=== PATIENT | male | born 1970 | race Caucasian/White ===

== ENCOUNTER 2020-05-11 17:25 | Emergency (ER) | payer MEDICAID, SELFPAY ==
[2020-05-11 17:29] VITALS: BP 160/86; PULSE 86; RESP 18; TEMP 36.6; O2SAT 98; BMI 30.9
--- NOTE | 2020-05-11 17:39 | CTR_ITS ---
PROCEDURE INFORMATION: Exam: CT Abdomen And Pelvis Without Contrast Exam date and time: 05/11/2020 5:40 PM Age: 49 years old Clinical indication: Abdominal pain; Flank; Left; Prior surgery; Surgery date: 6+ months; Surgery type: Appy back; Additional info: Left abd pain TECHNIQUE: Imaging protocol: Computed tomography of the abdomen and pelvis without contrast. Radiation optimization: All CT scans at this facility use at least one of these dose optimization techniques: automated exposure control; mA and/or kV adjustment per patient size (includes targeted exams where dose is matched to clinical indication); or iterative reconstruction. COMPARISON: No relevant prior studies available. RADIATION DOSE METRICS: Total DLP (mGy-cm): 1909.26 FINDINGS: Lungs: Mild atelectasis versus fibrosis noted at the lung bases. Mediastinal space: There is a small hiatal hernia present. Liver: Decreased hepatic density is noted, consistent with hepatic steatosis. There are 2 punctate hepatic calcifications, likely small healed granulomas. Gallbladder and bile ducts: Unremarkable. No calcified stones. No ductal dilation. Pancreas: The pancreas is normal in appearance. Spleen: The spleen is normal in size and appearance. Adrenal glands: The adrenal glands appear within normal limits. Kidneys and ureters: Nonobstructing 3 mm calculus noted in the left kidney. No right renal calculi. Mild left hydroureteronephrosis. There is a 2 mm proximal left ureteral calculus. Findings are consistent with left obstructive uropathy. No right hydronephrosis. Right ureter appears normal. Stomach and bowel: No acute gastric abnormality demonstrated. The small bowel is unremarkable as demonstrated. No acute abnormality/inflammatory change of the colon. Appendix: No evidence of appendicitis. Intraperitoneal space: No pneumoperitoneum. No significant fluid collection. Vasculature: The aorta is atherosclerotic. No aortic aneurysm. Lymph nodes: No pathologically enlarged lymph nodes are demonstrated. Urinary bladder: The urinary bladder is unremarkable in appearance. Reproductive: Mild enlargement of the prostate gland. Bones/joints: Degenerative and postop changes of the lumbar spine are noted. Soft tissues: Unremarkable. CT/CT kidney stone [id number] IMPRESSION: 1. Mild left hydroureteronephrosis. There is a 2 mm proximal left ureteral calculus. Findings are consistent with left obstructive uropathy. 2. Decreased hepatic density is noted, consistent with hepatic steatosis. Radiation Dose CTDIVOL = (mGy): DLP = 1909.26 (mGy-cm)
[2020-05-11 17:41] VITALS: BP 160/86; PULSE 91; RESP 17; O2SAT 99
--- NOTE | 2020-05-11 17:44 | ED_ITS ---
HPI - Male Genitourinary General: Chief complaint: Urogenital-Male Stated complaint: TESTICULAR ISSUE Time Seen by Provider: 05/11/20 17:29 History of Present Illness: HPI Narrative: Patient arrives via EMS with complaint of testicle and left abdomen pain. Said it started at 230. He was a patient on the waiting room earlier did not wait to be seen in the left. Did receive 100 mics of fentanyl in route from the ambulance. Said his testicles went up in his abdomen but said is more his abdomen is hurting. MD Complaint: other (Left lower quadrant abdominal pain) Onset (ago): hour(s) Duration: constant and progressively worsening Location: left testicle and abdomen Severity: moderate Severity scale (1-10): 7 Quality: aching, sharp and stabbing Exacerbating factors: movement Associated symptoms: Reports nausea Review of Systems Const: Denies: fever(s), chills or body aches Eyes: Denies: change in vision or blurry vision ENMT: Denies: throat pain or nasal congestion Card: Denies: chest pain or dyspnea on exertion Resp: Denies: dyspnea, productive cough or non-productive cough GI: Reports: abdominal pain and nausea : Reports: testicular pain; Denies: difficulty urinating Musc: Denies: extremity pain Skin/Breast: Denies: rash Neuro: Denies: headache(s) Psych: Denies: anxiety or depression Elroy/Lymph: Denies: easy bruising Physical Exam Const: COMMON NORMALS: no acute distress, average body habitus and patient oriented x3 HENMT: COMMON NORMALS: normocephalic HEAD & SCALP: normal to inspection and normocephalic FACE & SINUS: normal facial exam Eye: COMMON NORMALS: conjunctivae normal GENERAL EYE: appearance normal, both eyes and all related structures CONJUNCTIVA: Yes conjunctivae normal Neck/C-Spine: COMMON NORMALS: no JVD Chest: COMMONS NORMALS: normal inspection of the chest Resp: COMMON NORMALS: normal respiratory effort and clear to auscultation bilaterally AUSCULTATION: clear to auscultation bilaterally Cardio: COMMON NORMALS: no JVD, regular rate and regular rhythm RATE: regular rate RHYTHM: regular rhythm GI: INSPECTION: Yes normal to inspection AUSCULTATION: Yes normoactive bowel sounds PALPATION: Yes Tenderness to palpation present (GI) Details: LLQ : PENIS: normal penis SCROTUM: Yes testes descended bilaterally TESTES: Yes testicular lie normal and Yes high-riding testicle High-riding testicle laterality: left Extremity: COMMON NORMALS: normal to inspection and full ROM Neuro: COMMON NORMALS: patient oriented x3 Course Vital Signs: Vital signs: Vital Signs Temperature 97.9 F 05/11/20 17:29 Pulse Rate 91 05/11/20 17:41 Respiratory Rate 17 05/11/20 17:41 Blood Pressure 160/86 05/11/20 17:41 Pulse Oximetry 99 05/11/20 17:41 Discharge Plan Discharge Prescriptions: No Action No Known Home Medications RF: 0 Coding Level of Care Code ED Cash Register Operator for Nita Liu
[2020-05-11] MEDS: ketorolac 30 mg/mL INJ IVP (18:14)
[2020-05-11] MEDS: sodium chloride 0.9% 500 ML IV (18:14)
[2020-05-11 19:31] LABS: Add Urine Microscopic? YES; Bilirubin Urine Neg (Negative); Blood Urine 3+ (Negative); Glucose Urine UA Norm (Normal); Ketones Urine 1+ (Negative); Leukocyte Esterase Urine Negative (Negative); Nitrate Urine Negative (Negative); Protein Urine Neg (Negative); Urine Appearance Hazy (CLEAR); Urine Color Yellow (Yellow); Urobilinogen Urine Norm (Negative); pH Urine 5 (5-7)
[2020-05-11 19:34] LABS: Add Urine Culture? Yes; Bacteria Urine TRACE /hpf; RBC Urine 40-50 /hpf (0-2); Squamous Epithelial Cell Urine 0-4 /hpf (0-5)
[2020-05-11] MEDS: ondansetron 2 mg/ML SDV 2 mL 4 MG IVP (19:35)
[2020-05-11] MEDS: HYDROcodone-acetaminophen 7.5-325 mg Tablet 1 TAB PO (19:35)
[2020-05-11 19:36] VITALS: BP 140/75; PULSE 98; RESP 17; O2SAT 98
[2020-05-11 19:55] LABS: Basophils # 0.1 10^3/uL (0.0-0.1); Basophils % 0.4 %; Hematocrit 45.1 % (42.0-52.0); Lymphocytes # 0.9 10^3/uL (0.8-4.8); Lymphocytes % 4.4 %; Mean Corpuscular HGB Conc 33.3 g/dL (30.0-36.0); Mean Corpuscular Hemoglobin 30.1 pg (28.0-34.0); Mean Corpuscular Volume 90.6 fL (80-94); Mean Platelet Volume 9.3 fL (7.4-10.4); Monocytes # 0.9 10^3/uL (0.2-0.9); Monocytes % 4.6 %; Neutrophils # 17.75 10^3/uL (1.8-7.7); Nucleated Red Blood Cells % 0 %; Platelet Count 331 10^3/cmm (130-400); Red Blood Count 4.98 10^6/uL (4.1-5.3); Red Cell Distribution Width 13.8 % (12.1-15.1); White Blood Count 19.7 10^3/uL (4.0-10.0)
[2020-05-11] MEDS: tamsulosin 0.4 mg Capsule 0.8 MG PO (20:11)
[2020-05-11 20:17] LABS: Alanine Aminotransferase 28 U/L (0-41); Albumin Level 4.3 g/dL (3.5-5.2); Alkaline Phosphatase 90 IU/L (40-130); Anion Gap 14.4 (5-19); Aspartate Amino Transferase 19 U/L (0-40); Blood Urea Nitrogen 11 mg/dL (6-20); Calcium 9.8 mg/dL (8.5-10.5); Carbon Dioxide 25 mmol/L (22-29); Chloride 106 mmol/L (98-107); Globulin 2.9 g/dL (1.3-4.6); Glomerular Filtration Rate 63.8 mL/min (90-130); Glucose 104 mg/dL (65-115); Osmolality Calculated 292 mOsm/kg (285-295); Potassium 4.4 mmol/L (3.5-5.1); Sodium 141 mmol/L (136-145); Total Bilirubin 0.4 mg/dL (0.15-1.2); Total Protein 7.2 g/dL (6.6-8.7)
[2020-05-11 21:03] VITALS: BP 140/91; PULSE 91; RESP 18; O2SAT 97
== END 2020-05-11 21:05 | disposition home or self-care (01) ==
PROVIDERS: Emergency Provider Nurse Practitioner Family
DX: N50.812 Left testicular pain (principal)
CPT/HCPCS: 12345; 74176; 80053; 81001; 85025; 87086; 96361; 96374; 96375; 99283; J1885; J2405; J7040

== ENCOUNTER → 2020-06-07 14:31 | Outpatient (BNVA) | payer MEDICAID, SELFPAY | PROVIDERS: Visit Provider Family Medicine Adult Medicine | DX: I10 Essential (primary) hypertension (principal); N20.0 Calculus of kidney; R94.4 Abnormal results of kidney function studies; E66.9 Obesity, unspecified; M54.5 Low back pain; G89.29 Other chronic pain | CPT/HCPCS: 80053; 83036; 84443 ==

== ENCOUNTER 2020-08-14 10:51 | Emergency (ER) | payer MEDICAID, SELFPAY ==
[2020-08-14 10:58] VITALS: BP 171/115; PULSE 115; RESP 18; TEMP 37.1; O2SAT 98; BMI 28.7
--- NOTE | 2020-08-14 11:24 | CTR_ITS ---
PROCEDURE INFORMATION: Exam: CT Lumbar Spine Without Contrast Exam date and time: 08/14/2020 12:30 PM Age: 50 years old Clinical indication: Low back pain; Prior surgery; Surgery date: <1 month; Surgery type: Lumbar; Additional info: Recent spine surgery, severe leg pain TECHNIQUE: Imaging protocol: Computed tomography images of the lumbar spine without contrast. Radiation optimization: All CT scans at this facility use at least one of these dose optimization techniques: automated exposure control; mA and/or kV adjustment per patient size (includes targeted exams where dose is matched to clinical indication); or iterative reconstruction. COMPARISON: No relevant prior studies available. RADIATION DOSE METRICS: Total DLP (mGy-cm): 2558.18 FINDINGS: Vertebrae: The patient is status post L4-L5 anterior and L5-S1 posterior fusion. No evidence of hardware related complication. No spine curvature seen. The normal lumbar lordosis is maintained, with grade 1 retrolisthesis of L5. No fracture seen. The vertebral body heights are well maintained. Degenerative endplate changes at L5-S1 noted. L1-L2: No significant disc protrusion. No severe spinal canal stenosis. No significant neural foraminal narrowing. L2-L3: No significant disc protrusion. No spinal canal stenosis. No neural foraminal narrowing. L3-L4: There is mild circumferential disc bulging, in association with mild bilateral facet joint arthrosis. No severe spinal canal stenosis. No significant neural foraminal narrowing. L4-L5: There is moderate bilateral facet joint arthrosis. No significant neural foraminal narrowing. The spinal canal is obscured by extensive streak artifact. L5-S1: There is hypertrophy and sclerosis of the facet joints bilaterally. There is mild left and [id number] right neural foraminal narrowing. The spinal canal is obscured by extensive streak artifact. Vasculature: Mild diffuse atherosclerotic disease is present. Along the left anterior aspect of L5/level of the left common iliac vein, there is a mildly hyperdense structure with haziness of the surrounding fat, measuring approximately 4.3 x 2.2 x 3.7 cm. Soft tissues: Surgical skin clips are seen in the mid anterior pelvic wall. Multiple surgical clips and postoperative bubbles of air are noted in the prevertebral soft tissues. CT/CT lumbar spine wo con* [id number] IMPRESSION: 1. Status post L4-L5 anterior and L5-S1 posterior fusion. No evidence of hardware related complication. Limited visualization of the spinal canal at L4-L5-S1. 2. Degenerative changes of the lower lumbar spine, most prominent at L5-S1. 3. Mildly hyperdense structure with haziness of the adjacent fat in the prevertebral soft tissues at the level of L5/expected location of the left common iliac vein, which may represent a small postoperative hematoma, and enlarged thrombosed left common iliac vein, or a combination of both. Radiation Dose CTDIVOL = (mGy): DLP = 2558.18 (mGy-cm)
--- NOTE | 2020-08-14 11:24 | USR_ITS ---
PROCEDURE INFORMATION: Exam: US Duplex Lower Extremity Veins, Bilateral Exam date and time: 08/14/2020 11:34 AM Age: 50 years old Clinical indication: Pain; Leg, upper and leg, lower; Left; Right; Patient HX: Recent back surgery; Additional info: Bilateral leg pain, h/o dvt, recent surgery 9 days ago TECHNIQUE: Imaging protocol: Real-time duplex ultrasound of the extremities with 2-D márquez scale, color Doppler flow and spectral waveform analysis with image documentation. Complete exam focused on the bilateral lower extremity veins. COMPARISON: No relevant prior studies available. FINDINGS: Right deep veins: Unremarkable. The common femoral, femoral, proximal profunda femoral and popliteal veins are patent without thrombus. Normal Doppler waveforms. Normal compressibility and/or augmentation response. Right superficial veins: Saphenofemoral junction is patent without thrombus. Left deep veins: Unremarkable. The common femoral, femoral, proximal profunda femoral and popliteal veins are patent without thrombus. Normal Doppler waveforms. Normal compressibility and/or augmentation response. Left superficial veins: Saphenofemoral junction is patent without thrombus. Soft tissues: Unremarkable. US/[place] [id number] IMPRESSION: No evidence of deep vein thrombosis.
[2020-08-14] MEDS: HYDROmorphone 1 mg/mL INJ 1 mL IVP (11:41)
--- NOTE | 2020-08-14 11:49 | ED_ITS ---
HPI - Back Pain/Injury General: Chief Complaint: Back Pain/Injury Stated Complaint: BACK PAIN S/P SURGERY Time Seen by Provider: 08/14/20 10:59 Source: patient Mode of arrival: EMS Limitations: no limitations History of Present Illness: HPI Narrative: Patient is a 50-year-old male who had spinal surgery 9 days ago. He was discharged home 6 days ago and said for the first 2 days at home he felt fine. 2 days after he got home he developed severe bilateral lower extremity pain. He denies any back pain but only has pain in his lower extremities bilaterally. He is still able to walk using a walker as instructed by the surgeon. He denies any fever, but he says his legs feel warm. He had called the spinal surgeon who advised that he double the dose of his Percocet but he said it is not helping. The patient is crying throughout my interview and sometimes is difficult to obtain a complete history because he is crying so much. When I asked him he said he had a shoulder surgery a few years ago and shortly after the surgery he developed DVT in his upper extremity. Associated symptoms: Deny abdominal pain, chills, dysuria, fever(s), nausea, urinary urgency or vomiting Review of Systems General: Reports: 10 or more systems reviewed and unremarkable except in HPI and below Const: Denies: fever(s), chills or body aches Eyes: Denies: change in vision or blurry vision ENMT: Denies: throat pain, enlarged tonsils, odynophagia, hoarseness, mouth pain or swelling of lips/tongue Card: Denies: palpitations, irregular heart rhythm, edema or swelling of feet/ankles Resp: Denies: dyspnea, productive cough or non-productive cough GI: Denies: abdominal pain, nausea or vomiting : Denies: flank pain, dysuria, urinary frequency, urinary urgency or urinary hesitancy Musc: Denies: neck pain, back pain or extremity swelling Skin/Breast: Denies: rash, pruritus or erythema Neuro: Denies: headache(s), numbness in extremities or weakness in extremities Endo: Denies: polyuria, polydipsia or tired all the time PFSH ED PFSH: Medical History Chronic low back pain Decreased glomerular filtration rate (GFR) Elevated blood pressure reading Hypertension Kidney stones, calcium oxalate dihydrate Obesity (BMI 30.0-34.9) Social History Smoking and tobacco status: current every day smoker Physical Exam Const: COMMON NORMALS: no acute distress, average body habitus, patient oriented x3, no limitations, healthy appearing, alert and well nourished HENMT: COMMON NORMALS: normocephalic, atraumatic and moist oral mucous membranes HEAD & SCALP: normocephalic and atraumatic Neck/C-Spine: COMMON NORMALS: no meningeal signs and no JVD Resp: COMMON NORMALS: normal respiratory effort, No retractions, No use of accessory muscles, clear to auscultation bilaterally and percussion normal AUSCULTATION: clear to auscultation bilaterally PERCUSSION: percussion normal Cardio: COMMON NORMALS: no JVD, regular rate, regular rhythm, S1 normal heart sound present, S2 normal heart sound present, No gallops present (Cardio), No clicks present (Cardio), No murmurs present (Cardio), No rub (Cardio) and Peripheral pulses 2+ throughout RATE: regular rate RHYTHM: regular rhythm HEART SOUNDS: S1 normal heart sound present and S2 normal heart sound present PERIPHERAL PULSES: Peripheral pulses 2+ throughout GI: COMMON NORMALS: Soft to palpation, non-tender, No hepatosplenomegaly present, no masses and no bruits PALPATION: Yes Soft to palpation and Yes No hepatosplenomegaly present OTHER: Flaquita in his lower abdomen are clean and dry with incision looking good : COMMON NORMALS: Yes no CVA tenderness BLADDER/KIDNEY EXAM: Yes no CVA tenderness Back/Pelvis: COMMON NORMALS: no CVA tenderness Extremity: COMMON NORMALS: normal to inspection, full ROM, capillary refill normal and no pedal edema GENERAL: Yes calf tenderness (Bilateral) Neuro: COMMON NORMALS: patient oriented x3 SENSORIUM/ORIENTATION: Yes alert MENINGEAL SIGNS: Yes no meningeal signs Skin: COMMON NORMALS: no rashes or lesions noted, no wounds, turgor normal, no jaundice, no petechiae and no mottling GENERAL SKIN EXAM: no rashes or lesions noted and turgor normal Course Reevaluation(s): Reevaluation #1: Discussed his lab and imaging findings with him. No evidence for DVT, or complications from the surgery. Pain has been resolved following administration of hydromorphone. We will discharge him home and he is to follow-up with his surgeon and primary care providers. He voiced understanding and is in agreement with the plan. Time: 14:46 Vital Signs: Vital signs: Vital Signs Temperature 98.7 F 08/14/20 10:58 Pulse Rate 115 H 08/14/20 10:58 Respiratory Rate 18 08/14/20 10:58 Blood Pressure 171/115 08/14/20 10:58 Pulse Oximetry 98 08/14/20 10:58 MDM - Back Pain/Injury MDM Narrative: Medical decision making narrative: 50-year-old male who recently had spinal surgery. He presents today with bilateral lower extremity pain and evaluation that started 2 days after he got home. Evaluation here does not show any complications from the surgery and no DVTs on ultrasound examination of his veins. He has a prior history of DVTs. Pain was relieved with a single dose of intravenous hydromorphone. He is advised to follow-up with his surgeon and his primary care provider. Medical Records: Attestation: I reviewed the patient's medical records. Lab Data: Attestation: I reviewed the patient's lab results. Labs: Lab Results 08/14/20 08/14/20 Range/Units 12:28 12:28 WBC 9.4 (4.0-10.0) 10^3/ uL RBC 4.01 L (4.1-5.3) 10^6/u L Hgb 11.9 (11.7-16.6) g/dL Hct 37.2 L (42.0-52.0) % MCV 92.8 (80-94) fL MCH 29.7 (28.0-34.0) pg MCHC 32.0 (30.0-36.0) g/dL RDW 14.0 (12.1-15.1) % Plt Count 481 H (130-400) 10^3/c mm MPV 9.0 (7.4-10.4) fL Neut % (Auto) 65.9 % Lymph % (Auto) 21.0 % [place] % (Auto) 10.2 % Eos % (Auto) 1.1 % Baso % (Auto) 0.9 % Neut # (Auto) 6.19 (1.8-7.7) 10^3/u L Lymph # (Auto) 2.0 (0.8-4.8) 10^3/u L [place] # (Auto) 1.0 H (0.2-0.9) 10^3/u L Eos # (Auto) 0.1 (0.0-0.8) 10^3/u L Baso # (Auto) 0.1 (0.0-0.1) 10^3/u L Nucleated RBC % (a uto) 0 % Nucleated RBCs # 0.0 /100WBC Sodium 138 (136-145) mmol/L Potassium 4.0 (3.5-5.1) mmol/L Chloride 103 (98-107) mmol/L Carbon Dioxide 26 (22-29) mmol/L Anion Gap 13.0 (5-19) BUN 11 (6-20) mg/dL Creatinine 0.7 (0.7-1.2) mg/dL GFR Calculation 118.4 (90-130) mL/min Glucose 105 (65-115) mg/dL Calculated Osmolal ity 286 (285-295) mOsm/k g Calcium 9.1 (8.5-10.5) mg/dL Magnesium 2.0 (1.7-2.3) mg/dL Total Bilirubin 0.3 (0.15-1.2) mg/dL AST 55 H (0-40) U/L ALT 121 H (0-41) U/L Alkaline Phosphata se 224 H (40-130) IU/L Total Protein 6.5 L (6.6-8.7) g/dL Albumin 3.6 (3.5-5.2) g/dL Globulin 2.9 (1.3-4.6) g/dL Imaging Data^: Other CT: Attestation: I personally reviewed and interpreted this imaging study as follows: Radiologist's impression: [address] [address] [address] Scan Report Signed with Ingridenda Patient: Jonathan Etienne #: [id number] : 1970Acct#:[id number] Age/Sex: 50 / MADM Date: 08/14/20 Loc: ERRoom/Bed: Attending Dr: Ordering Provider/Ordering MD: Caridad Nelson MD, [facility] [place] Date of Service: 08/14/20 Procedure(s): CT lumbar spine wo con* [id number] Accession Number(s): [id number] Report Number: [id number]/CT lumbar spine wo con* [id number] THIS REPORT CONTAINS FINDINGS THAT MAY BE CRITICAL TO PATIENT CARE. The findings were verbally communicated via telephone conference with CARIDAD NELSON at 1:25 PM ELECTRICAL PLUMBING SUPERVISOR on 08/14/2020. The findings were acknowledged and understood. Ultrasound evaluation of the iliac veins was recommended. Radiation Dose CTDIVOL = (mGy): DLP = 2558.18 (mGy-cm) Addendum Dictated By: Sav Granados Addendum Signed By: Juan Carlos Granados Date/Time:08/14/20 1326 Addendum Cosigned By: PROCEDURE INFORMATION: Exam: CT Lumbar Spine Without Contrast Exam date and time: 08/14/2020 12:30 PM Age: 50 years old Clinical indication: Low back pain; Prior surgery; Surgery date: <1 month; Surgery type: Lumbar; Additional info: Recent spine surgery, severe leg pain TECHNIQUE: Imaging protocol: Computed tomography images of the lumbar spine without contrast. Radiation optimization: All CT scans at this facility use at least one of these dose optimization techniques: automated exposure control; mA and/or kV adjustment per patient size (includes targeted exams where dose is matched to clinical indication); or iterative reconstruction. COMPARISON: No relevant prior studies available. RADIATION DOSE METRICS: Total DLP (mGy-cm): 2558.18 FINDINGS: Vertebrae: The patient is status post L4-L5 anterior and L5-S1 posterior fusion. No evidence of hardware related complication. No spine curvature seen. The normal lumbar lordosis is maintained, with grade 1 retrolisthesis of L5. No fracture seen. The vertebral body heights are well maintained. Degenerative endplate changes at L5-S1 noted. L1-L2: No significant disc protrusion. No severe spinal canal stenosis. No significant neural foraminal narrowing. L2-L3: No significant disc protrusion. No spinal canal stenosis. No neural foraminal narrowing. L3-L4: There is mild circumferential disc bulging, in association with mild bilateral facet joint arthrosis. No severe spinal canal stenosis. No significant neural foraminal narrowing. L4-L5: There is moderate bilateral facet joint arthrosis. No significant neural foraminal narrowing. The spinal canal is obscured by extensive streak artifact. L5-S1: There is hypertrophy and sclerosis of the facet joints bilaterally. There is mild left and [id number] right neural foraminal narrowing. The spinal canal is obscured by extensive streak artifact. Vasculature: Mild diffuse atherosclerotic disease is present. Along the left anterior aspect of L5/level of the left common iliac vein, there is a mildly hyperdense structure with haziness of the surrounding fat, measuring approximately 4.3 x 2.2 x 3.7 cm. Soft tissues: Surgical skin clips are seen in the mid anterior pelvic wall. Multiple surgical clips and postoperative bubbles of air are noted in the prevertebral soft tissues. CT/CT lumbar spine wo con* [id number] IMPRESSION: 1. Status post L4-L5 anterior and L5-S1 posterior fusion. No evidence of hardware related complication. Limited visualization of the spinal canal at L4-L5-S1. 2. Degenerative changes of the lower lumbar spine, most prominent at L5-S1. 3. Mildly hyperdense structure with haziness of the adjacent fat in the prevertebral soft tissues at the level of L5/expected location of the left common iliac vein, which may represent a small postoperative hematoma, and enlarged thrombosed left common iliac vein, or a combination of both. Radiation Dose CTDIVOL = (mGy): DLP = 2558.18 (mGy-cm) Dictated By:Sav Granados Signed By:Sav GranadosSignfabrice Date/Time:08/14/20 1315 DD/ 1314 Vascular: Attestation: I personally reviewed and interpreted this imaging study as follows: Radiologist's impression: [address] [place] [address] Ultrasound Report Signed Patient: Jonathan Etienne Waqarcaitie #: [id number] : 1970Acct#:[id number] Age/Sex: 50 / MADM Date: 08/14/20 Loc: ERRoom/Bed: Attending Dr: Ordering Provider/Ordering MD: Caridad Nelson MD, [facility] [place] Date of Service: 08/14/20 Procedure(s): CV unlisted vascular [id number] Accession Number(s): [id number] Report Number: [id number] PROCEDURE INFORMATION: Exam: US Abdomen; Limited Exam date and time: 08/14/2020 1:37 PM Age: 50 years old Clinical indication: Abnormal findings; Abnormal CT; Prior surgery; Surgery date: <1 month; Surgery type: Back surgery; Additional info: ? Thrombosed common iliac vein TECHNIQUE: Imaging protocol: US abdomen. Real time ultrasound with image documentation. Limited exam focused on the region of clinical interest. COMPARISON: CT kidney stone [id number] 05/11/2020 5:46 PM FINDINGS: Other vasculature: Limited study secondary to overlying bowel gas and bandages from recent surgery. Right in left external iliac veins are patent where visualized. Common iliac veins are not well seen. US/CV unlisted vascular [id number] IMPRESSION: No ultrasound evidence for iliac vein thrombosis. Dictated By:Ale Irvin MD Signed By:Ale Irvin MDSigned Date/Time:08/14/20 1440 DD/ [address] [address] Ultrasound Report Signed Patient: Jonathan Etienne #: [id number] : 1970Acct#:[id number] Age/Sex: 50 / MADM Date: 08/14/20 Loc: ERRoom/Bed: Attending Dr: Ordering Provider/Ordering MD: Caridad Nelson MD, [facility] [place] Date of Service: 08/14/20 Procedure(s): [place] [id number] Accession Number(s): [id number] Report Number: [id number] PROCEDURE INFORMATION: Exam: US Duplex Lower Extremity Veins, Bilateral Exam date and time: 08/14/2020 11:34 AM Age: 50 years old Clinical indication: Pain; Leg, upper and leg, lower; Left; Right; Patient HX: Recent back surgery; Additional info: Bilateral leg pain, h/o dvt, recent surgery 9 days ago TECHNIQUE: Imaging protocol: Real-time duplex ultrasound of the extremities with 2-D márquez scale, color Doppler flow and spectral waveform analysis with image documentation. Complete exam focused on the bilateral lower extremity veins. COMPARISON: No relevant prior studies available. FINDINGS: Right deep veins: Unremarkable. The common femoral, femoral, proximal profunda femoral and popliteal veins are patent without thrombus. Normal Doppler waveforms. Normal compressibility and/or augmentation response. Right superficial veins: Saphenofemoral junction is patent without thrombus. Left deep veins: Unremarkable. The common femoral, femoral, proximal profunda femoral and popliteal veins are patent without thrombus. Normal Doppler waveforms. Normal compressibility and/or augmentation response. Left superficial veins: Saphenofemoral junction is patent without thrombus. Soft tissues: Unremarkable. US/[place] [id number] IMPRESSION: No evidence of deep vein thrombosis. Dictated By:Sav Granados Signed By:Juan Carlos Granados Date/Time:08/14/201227 DD/ 1227 Discharge Plan Discharge Patient Disposition: Home Clinical Impression: Post-operative pain Condition: Stable Prescriptions: Continued diazepam 5 mg tablet 5 mg PO TID@08,12,21 RF: 0 Discharge Orders: Discharge ED (Routine); Ordered 08/14/20 Ordered By: Caridad Nelson Discharge Diet: Usual diet Discharge Activity: Resume usual activity Patient Instructions: Lumbar Radiculopathy (ED) Activity Restrictions/Additional Instructions: Return for any new or worsening symptoms. Follow-up with your primary care provider within 3 days. Follow-up with the surgeon as scheduled. Call the surgeon and inform him as to what has happened. Coding Level of Care Code ED Differential Specialist for Chg Fwd Exam Comprehensive
[2020-08-14 13:02] LABS: Alanine Aminotransferase 121 U/L (0-41); Albumin Level 3.6 g/dL (3.5-5.2); Alkaline Phosphatase 224 IU/L (40-130); Aspartate Amino Transferase 55 U/L (0-40); Basophils # 0.1 10^3/uL (0.0-0.1); Basophils % 0.9 %; Blood Urea Nitrogen 11 mg/dL (6-20); Calcium 9.1 mg/dL (8.5-10.5); Carbon Dioxide 26 mmol/L (22-29); Chloride 103 mmol/L (98-107); Eosinophils # 0.1 10^3/uL (0.0-0.8); Eosinophils % 1.1 %; Globulin 2.9 g/dL (1.3-4.6); Glomerular Filtration Rate 118.4 mL/min (90-130); Glucose 105 mg/dL (65-115); Hematocrit 37.2 % (42.0-52.0); Hemoglobin 11.9 g/dL (11.7-16.6); Mean Corpuscular Hemoglobin 29.7 pg (28.0-34.0); Mean Corpuscular Volume 92.8 fL (80-94); Monocytes % 10.2 %; Neutrophils # 6.19 10^3/uL (1.8-7.7); Neutrophils % 65.9 %; Nucleated Red Blood Cells % 0 %; Osmolality Calculated 286 mOsm/kg (285-295); Platelet Count 481 10^3/cmm (130-400); Red Blood Count 4.01 10^6/uL (4.1-5.3); Sodium 138 mmol/L (136-145); Total Bilirubin 0.3 mg/dL (0.15-1.2); Total Protein 6.5 g/dL (6.6-8.7); White Blood Count 9.4 10^3/uL (4.0-10.0)
--- NOTE | 2020-08-14 13:27 | USR_ITS ---
PROCEDURE INFORMATION: Exam: US Abdomen; Limited Exam date and time: 08/14/2020 1:37 PM Age: 50 years old Clinical indication: Abnormal findings; Abnormal CT; Prior surgery; Surgery date: <1 month; Surgery type: Back surgery; Additional info: ? Thrombosed common iliac vein TECHNIQUE: Imaging protocol: US abdomen. Real time ultrasound with image documentation. Limited exam focused on the region of clinical interest. COMPARISON: CT kidney stone [id number] 05/11/2020 5:46 PM FINDINGS: Other vasculature: Limited study secondary to overlying bowel gas and bandages from recent surgery. Right in left external iliac veins are patent where visualized. Common iliac veins are not well seen. US/CV unlisted vascular [id number] IMPRESSION: No ultrasound evidence for iliac vein thrombosis.
[2020-08-14 14:58] VITALS: PULSE 91; RESP 18; O2SAT 99
== END 2020-08-14 14:59 | disposition home or self-care (01) ==
PROVIDERS: Emergency Provider Family Medicine
DX: G89.18 Other acute postprocedural pain (principal); I10 Essential (primary) hypertension; F17.210 Nicotine dependence, cigarettes, uncomplicated
CPT/HCPCS: 12345; 72131; 80053; 83735; 85025; 93970; 93998; 96374; 99282; 99283; J1170

== ENCOUNTER 2021-03-17 07:39 | Emergency (ER) | payer MEDICAID, SELFPAY ==
[2021-03-17 07:59] VITALS: BP 145/98; PULSE 97; RESP 15; TEMP 36.8; O2SAT 98; BMI 28.7
[2021-03-17 08:03] VITALS: RESP 16
--- NOTE | 2021-03-17 08:19 | ED_ITS ---
HPI - Dental/Oral General: Chief complaint: Dental/Oral Stated complaint: Mouth Pain, Tooth Pain Time Seen by Provider: 03/17/21 07:42 Source: patient Mode of arrival: ambulatory Limitations: no limitations History of Present Illness: HPI Narrative: 50-year-old male presents to the ER today for dental pain. He was seen by his PCP yesterday and given clindamycin 300 mg 3 times a day along with a Toradol shot. Patient reports the shot did not do much for the pain he did go ahead and start the antibiotic but is not having any relief. He is taking Tylenol and Excedrin at home with no improvement, he also slept on a heating pad last night. Patient denies any swelling of the face. He reports primary area of pain is left upper and left lower back teeth. He has multiple dental caries and poor dentition. He plans to see the dental ER in [place] on Saturday however cannot tolerate the pain in the meantime. Patient denies any fever or chills. Patient denies congesti on, runny nose, ear pain, throat pain, cough, chest pain, shortness of breath, nausea, vomiting, diarrhea, constipation. MD Complaint: tooth pain Teeth map: 1. fractured tooth with green discharge noted around the gum line 2. fractured tooth with caries Onset (ago): day(s) Duration: constant Severity: severe Severity scale (1-10): 9 Relieving factors: nothing Context: history of dental caries and poor dental care Associated symptoms: Reports no associated symptoms; Denies fever(s) or odynophagia Review of Systems Const: Denies: fever(s) or chills ENMT: Reports: dental pain (left upper back and left lower back molar); Denies: throat pain, odynophagia, swelling of lips/tongue, nasal discharge or nasal congestion Card: Denies: chest pain or palpitations Resp: Denies: dyspnea or wheezing GI: Denies: abdominal pain, nausea, vomiting, diarrhea, constipation or change in bowel habits Musc: Denies: extremity pain or extremity swelling Skin/Breast: Denies: rash Neuro: Denies: headache(s) [place]/Lymph: Denies: tender lymph nodes All/Imm: Denies: throat swelling PFSH ED PFSH: Medical History Chronic low back pain Decreased glomerular filtration rate (GFR) Elevated blood pressure reading Hypertension Kidney stones, calcium oxalate dihydrate Lumbar disc disease with radiculopathy Obesity (BMI 30.0-34.9) Social History Smoking and tobacco status: current every day smoker Physical Exam Const: COMMON NORMALS: apparent distress (mild distress, pt tearful) EXAM LIMITATIONS: no altered mental status GENERAL APPEARANCE: cooperative ORIENTATION/CONSCIOUSNESS: Yes oriented to person, Yes oriented to place and Yes oriented to time HENMT: COMMON NORMALS: normocephalic, external ears normal, TM's normal bilaterally, Normal nasal mucous membranes and turbinates present and moist oral mucous membranes; dentition not normal and gingiva not normal HEAD & SCALP: normocephalic NOSE: Normal nasal mucous membranes and turbinates present EXTERNAL EAR: Yes external ears normal TYMPANIC MEMBRANE: TM's normal bilaterally TEETH & GINGIVA: Yes abnormal tooth and associated gingiva, Yes caries and Yes poor dentition TEETH & GINGIVA IMAGES: 1. fractured molar with green discharge noted along gum line 2. fractured molar with caries THROAT: posterior oropharynx normal Neck/C-Spine: COMMON NORMALS: no lymphadenopathy and no JVD Lymph: LYMPHATIC: no lymphadenopathy noted Resp: COMMON NORMALS: normal respiratory effort, No retractions and clear to auscultation bilaterally AUSCULTATION: clear to auscultation bilaterally, no rales, no rhonchi and no wheezes Cardio: COMMON NORMALS: no JVD, regular rate, regular rhythm and No murmurs p resent (Cardio) RATE: regular rate RHYTHM: regular rhythm GI: COMMON NORMALS: Normal to inspection, nondistended, normoactive bowel sounds present, Soft to palpation and non-tender PALPATION: Yes Soft to palpation Extremity: COMMON NORMALS: normal to inspection, full ROM and capillary refill normal Neuro: SENSORIUM/ORIENTATION: Yes oriented to person, Yes oriented to place and Yes oriented to time Psych: APPEARANCE: Yes grossly normal Skin: COMMON NORMALS: no rashes or lesions noted GENERAL SKIN EXAM: no rashes or lesions noted Course ED course: Patient is stable in ER. Patient will be given scripts to take h ome for pain. He should continue his antibiotics given to him by his PCP and follow-up with the dental ER on [place] as planned. Vital Signs: Vital signs: Vital Signs Temperature 98.2 F 03/17/21 07:59 Pulse Rate 97 03/17/21 07:59 Respiratory Rate 16 03/17/21 08:03 Blood Pressure 145/98 03/17/21 07:59 Pulse Oximetry 98 03/17/21 07:59 MDM - Dental/Oral MDM Narrative: Medical decision making narrative: Patient has multiple dental caries and fractured teeth throughout the mouth. There is noted to be a probable abscess left upper back molar with green discharge seen in the ER. Patient is on clindamycin 300 mg 3 times a day. He started that yesterday and should continue that at home as directed by PCP. We will add viscous lidocaine topically in addition to Toradol for the next couple of days for pain. Patient advised not to take ibuprofen but okay to take Tylenol as directed on the bottle. Apply ice alternated with heat whichever seems to help with the pain more. Return to the ER with any new or worsening symptoms. Critical Care Time Critical Care Time: Critical Care Time: No Discharge Plan Discharge Patient Disposition: Home Clinical Impression: Dental abscess, Dental caries Condition: Stable Prescriptions: New lidocaine HCl [Lidocaine Viscous] 2 % solution 1 applic mucous membrane Q3H PRN (Reason: pain) Qty: 100 RF: 0 ketorolac 10 mg tablet 10 mg PO Q8H PRN (Reason: pain) 3 Days Qty: 12 RF: 0 No Action clindamycin HCl 300 mg capsule 300 mg PO TID 7 Days Qty: 21 RF: 0 lisinopril-hydrochlorothiazide 20-25 mg tablet 1 tab PO DAILY Qty: 90 RF: 2 Discharge Orders: Discharge ED (Routine); Ordered 03/17/21 Ordered By: Evelyn Lloyd Referrals: Sarah Elizalde MD [Primary Care Provider] - Discharge Diet: Usual diet Discharge Activity: Resume usual activity Patient Instructions: Opioid Safety Activity Restrictions/Additional Instructions: Continue clindamycin as prescribed by PCP. Take Toradol as prescribed. Use viscous lidocaine as discussed. Follow-up with dental ER on Saturday as discussed. Alternate Tylenol with the Toradol but do not take above recommended dose. Alternate heat and ice for comfort. Return to the ER with any new or worsening symptoms. Coding Level of Care Code ED Entry Level Electrician for Nita Liu
[2021-03-17] MEDS: ketorolac 30 mg/mL INJ IM (09:06)
[2021-03-17 09:11] VITALS: BP 146/97; PULSE 82; RESP 16; O2SAT 99
== END 2021-03-17 09:11 | disposition home or self-care (01) ==
PROVIDERS: Emergency Provider Physician Assistant; PCP Family Medicine
DX: K02.9 Dental caries, unspecified (principal); K04.7 Periapical abscess without sinus; I10 Essential (primary) hypertension; F17.210 Nicotine dependence, cigarettes, uncomplicated
CPT/HCPCS: 96372; 99283; J1885

== ENCOUNTER 2021-06-17 19:23 | Emergency (ER) | payer MEDICAID, SELFPAY ==
[2021-06-17] VITALS (8 sets, daily range): BP systolic 109–142; BP diastolic 72–88; PULSE 90–108; RESP 18–26; TEMP 36.7; O2SAT 91–97; BMI 27.2
--- NOTE | 2021-06-17 19:36 | ED_ITS ---
HPI - Abdominal Pain General: Chief Complaint: Abdominal Pain Stated Complaint: l side pain Time Seen by Provider: 06/17/21 19:35 History of Present Illness: HPI narrative: Mr. Etienne is a 51-year-old gentleman with history of hypertension and chronic low back pain who presents to the emergency department due to flank pain. Symptom onset was acute approximately 1.5 hours ago. He describes sharp and cramping abdominal pain associated with nausea and vomiting. He denies specific inciting event. Intensity of symptoms is severe. Course has persisted. He has had similar symptoms a number of years ago related to kidney stones and reports that he has a history of requiring surgery to remove the stones with ureteral stenting. Symptoms are worse with movement however do not go with rest. No other specific exacerbating, alleviating, or provoking factors. No other changes in health reported. Review of Systems General: Reports: 10 or more systems reviewed and unremarkable except in HPI and below PFSH ED PFSH: Medical History (Updated 06/28/21 @ 00:00 by ) Chronic low back pain Decreased glomerular filtration rate (GFR) Elevated blood pressure reading Hypertension Lumbar disc disease with radiculopathy Obesity (BMI 30.0-34.9) Urolithiasis Multi stone former. 2 ureteral calculi in <1-year. Tiny punctate stone right kidney in addition Family History (Updated 06/27/21 @ 08:25 by Monserrat Osullivan LPN) Father , AT AGE 75 Lung disease Mother , AT 79 Dementia Social History (Updated 06/27/21 @ 08:26 by Monserrat Osullivan LPN) Alcohol intake: never Marital status: Current occupational status: other Details: WORK COMP History of recent travel: No Physical Exam Narrative: EXAM NARRATIVE: GENERAL/CONSTITUTIONAL -distress due to pain. Nontoxic Eyes - PERRL, no conjunctival injection ENMT - Atraumatic external nose and ears. NECK - supple. trachea midline CARDIOVASCULAR -tachycardic rate and regular rhythm. RESPIRATORY - clear to auscultation bilaterally. Tachypnea. ABDOMEN/GI -flank tender to palpation. No evidence of remote peritonitis. MSK - Extremities without obvious deformity or tenderness to palpation SKIN - Warm, Dry NEURO - alert and appropriately oriented. Moves all extremities equally. Course ED course: - Patient was seen and evaluated by me at bedside - Patient placed on cardiac monitors, IV access obtained - Initial evaluation notable for distress due to pain. -Symptom treatment ordered - Labs notable for mild leukocytosis. Renal function is elevated compared to baseline however not outside normal range. The urinalysis shows significant RBCs without evidence of urinary tract infection. - Imaging notable for obstructing 3 mm stone in the proximal left ureter with mild to moderate hydroureteronephrosis - Upon serial reexamination after treatment the patient was improved with symptom treatment - Based on patient history, evaluation, labs, and imaging as interpreted the most likely cause of the patient's condition is 3 mm proximal left ureteral stone. Given size this is likely to pass on its own, given absence of evidence of urinary tract infection and improvement in symptoms I believe that the patient can be safely discharged for follow-up versus stone passage - The results of ED evaluation were discussed with the patient including p rescriptions and/or symptomatic cares (if applicable) including appropriate and responsible use, followup plan, and return precautions. The patient verbalized understanding and felt safe for discharge. - Patient discharged in satisfactory condition. Vital Signs: Vital signs: Vital Signs Temperature 98.1 F 06/17/21 19:30 Pulse Rate 100 06/17/21 23:08 Respiratory Rate 18 06/17/21 23:08 Blood Pressure 109/76 06/17/21 23:08 Pulse Oximetry 95 06/17/21 23:08 MDM - Abdominal Pain Medical Records: Attestation: I reviewed the patient's medical records. Lab Data: Attestation: I reviewed the patient's lab results. Labs: Lab Results 06/17/21 06/17/21 06/17/21 19:40 19:40 20:26 WBC 12.2 10^3/uL H 10 ^3/uL (4.0-10.0) RBC 4.85 10^6/uL 10^6 /uL (4.1-5.3) Hgb 14.5 g/dL g/dL (11.7-16.6) Hct 43.0 % % (42.0-52.0) MCV 88.7 fl fl (80-94) MCH 29.9 pg pg (28.0-34.0) MCHC 33.7 g/dL g/dL (30.0-36.0) RDW 13.3 % % (12.1-15.1) Plt Count 347 10^3/cmm 10^3 /cmm (130-400) MPV 9.1 fL fL (7.4-10.4) Neut % (Auto) 66.0 % % Lymph % (Auto) 24.7 % % [place] % (Auto) 7.7 % % Eos % (Auto) 0.6 % % Baso % (Auto) 0.7 % % Neut # (Auto) 8.06 10^3/uL H 10 ^3/uL (1.8-7.7) Lymph # (Auto) 3.0 10^3/uL 10^3/ uL (0.8-4.8) [place] # (Auto) 0.9 10^3/uL 10^3/ uL (0.2-0.9) Eos # (Auto) 0.1 10^3/uL 10^3/ uL (0.0-0.8) Baso # (Auto) 0.1 10^3/uL 10^3/ uL (0.0-0.1) Nucleated RBC % (a uto) 0 % % Nucleated RBCs # 0.0 /100WBC /100W BC Sodium 138 mmol/L mmol/L (136-145) Potassium 3.8 mmol/L mmol/L (3.5-5.1) Chloride 100 mmol/L mmol/L (98-107) Carbon Dioxide 26 mmol/L mmol/L (22-29) Anion Gap 15.8 (5-19) BUN 19 mg/dL mg/dL (6-20) Creatinine 1.2 mg/dL mg/dL (0.7-1.2) GFR Calculation 63.6 mL/min L mL/ min (90-130) Glucose 118 mg/dL H mg/dL (65-115) Calculated Osmolal ity 289 mOsm/kg mOsm/ kg (285-295) Calcium 8.8 mg/dL mg/dL (8.5-10.5) Total Bilirubin 0.2 mg/dL mg/dL (0.15-1.2) AST 15 U/L U/L (0-40) ALT 16 U/L U/L (0-41) Alkaline Phosphata se 83 IU/L IU/L (40-130) Total Protein 6.4 g/dL L g/dL (6.6-8.7) Albumin 4.1 g/dL g/dL (3.5-5.2) Globulin 2.3 g/dL g/dL (1.3-4.6) Lipase 28 U/L U/L (13-60) Urine Color Vandana (Yellow) Urine Appearance Hazy A (CLEAR) Urine pH 5 (5-7) Ur Specific Gravit y 1.020 (1.005-1.030) Urine Protein 1+ H (Negative) Urine Glucose (UA) Norm (Normal) Urine Ketones Negative (Negative) Urine Blood 3+ H (Negative) Urine Nitrate Negative (Negative) Urine Bilirubin Neg (Negative) Urine Urobilinogen Norm mg/dL mg/dL (Negative) Ur Leukocyte Arabella ase Negative (Negative) Urine RBC Too numerous to c nt /hpf H /hpf (0-2) Urine WBC 0-4 /hpf H /hpf (0-5) Ur Squamous Epith Cells 0-4 /hpf H /hpf (0-5) Amorphous Sediment Not Reportable Urine Bacteria Trace /hpf /hpf (NONE) Urine Mucus Trace /hpf /hpf Discharge Plan Discharge Patient Disposition: Home Clinical Impression: Ureterolithiasis Condition: Stable Prescriptions: New tamsulosin [Flomax] 0.4 mg capsule 0.4 mg PO .qhs Qty: 20 RF: 0 No Action hydrocodone-acetaminophen 5-325 mg tablet 1 tab PO Q6H PRN (Reason: pain) 4 Days Qty: 16 RF: 0 lisinopril-hydrochlorothiazide 20-25 mg tablet 1 tab PO DAILY Qty: 90 RF: 2 Discharge Orders: Discharge ED (Routine); Ordered 06/17/21 Ordered By: Wayne Smith Referrals: Sarah Elizalde MD [Primary Care Provider] - Discharge Diet: Usual diet Discharge Activity: Resume usual activity Patient Instructions: Ureteral Stones (ED), Opioid Safety Activity Restrictions/Additional Instructions: Thank you for visiting the emergency department. You were seen and evaluated for abdominal pain. You were found to have kidney stone which likely explains your symptoms. You will be given medication for this. Please follow-up with your primary care provider. Please follow-up with urology if you fail to improve. Return to the emergency department for anything that you are concerned about and feel needs emergency department evaluation. Return for any infectious symptoms or uncontrolled pain. Coding Level of Care Code ED Histotechnologist Supervisor for Nita Liu
[2021-06-17 19:44] LABS: Basophils # 0.1 10^3/uL (0.0-0.1); Basophils % 0.7 %; Eosinophils # 0.1 10^3/uL (0.0-0.8); Eosinophils % 0.6 %; Hemoglobin 14.5 g/dL (11.7-16.6); Lymphocytes % 24.7 %; Mean Corpuscular HGB Conc 33.7 g/dL (30.0-36.0); Mean Corpuscular Hemoglobin 29.9 pg (28.0-34.0); Mean Corpuscular Volume 88.7 fl (80-94); Mean Platelet Volume 9.1 fL (7.4-10.4); Monocytes # 0.9 10^3/uL (0.2-0.9); Monocytes % 7.7 %; Neutrophils # 8.06 10^3/uL (1.8-7.7); Nucleated Red Blood Cells % 0 %; Platelet Count 347 10^3/cmm (130-400); Red Blood Count 4.85 10^6/uL (4.1-5.3); Red Cell Distribution Width 13.3 % (12.1-15.1); White Blood Count 12.2 10^3/uL (4.0-10.0)
--- NOTE | 2021-06-17 19:44 | CTR_ITS ---
PROCEDURE INFORMATION: Exam: CT Abdomen And Pelvis With Contrast Exam date and time: 06/17/2021 7:44 PM Age: 50 years old Clinical indication: Abdominal pain; Flank; Left; Prior surgery; Surgery date: 6+ months; Surgery type: Appy, back; Additional info: Severe left flank pain/periumbilical abd pain TECHNIQUE: Imaging protocol: Computed tomography of the abdomen and pelvis with contrast. Radiation optimization: All CT scans at this facility use at least one of these dose optimization techniques: automated exposure control; mA and/or kV adjustment per patient size (includes targeted exams where dose is matched to clinical indication); or iterative reconstruction. Contrast material: OMNI 300; Contrast volume: 95 ml; Contrast route: INTRAVENOUS (IV); COMPARISON: CT kidney stone [id number] 05/11/2020 5:46 PM RADIATION DOSE METRICS: Total DLP (mGy-cm): 1743.78 FINDINGS: Liver: Normal. No mass. Gallbladder and bile ducts: Normal. No calcified stones. No ductal dilation. Pancreas: Normal. No ductal dilation. Spleen: Normal. No splenomegaly. Adrenal glands: Normal. No mass. Kidneys and ureters: 3 mm stone noted in the proximal aspect of the left ureter series 2, image 37. There is upstream [id number] hydroureteronephrosis. No hydronephrosis. Proximal aspect of the left ureter PROCEDURE INFORMATION: Stomach and bowel: Unremarkable. No obstruction. No mucosal thickening. Appendix: Appendectomy. Intraperitoneal space: Unremarkable. No free air. No significant fluid collection. Vasculature: Unremarkable. No abdominal aortic aneurysm. Lymph nodes: Unremarkable. No enlarged lymph nodes. Urinary bladder: Unremarkable as visualized. Reproductive: Unremarkable as visualized. Bones/joints: Posterior spinal decompression changes at L5-S1 with sequela of anterior and posterior spinal fusion at L4-L5 with intervertebral disc spacer. Soft tissues: Unremarkable. CT/CT abdomen pelvis w con* [id number] IMPRESSION: Obstructing 3 mm stone in the proximal left ureter with upstream [id number] hydroureteronephrosis.
[2021-06-17] MEDS: ondansetron 2 mg/ML SDV 2 mL 4 MG IVP (19:48)
[2021-06-17] MEDS: HYDROmorphone 1 mg/mL INJ 1 mL 0.5 MG IVP ×2 (19:48→22:25)
[2021-06-17] MEDS: iohexol 300 mg/mL 100 mL Btl IV (19:59)
[2021-06-17 20:04] LABS: Alanine Aminotransferase 16 U/L (0-41); Albumin Level 4.1 g/dL (3.5-5.2); Alkaline Phosphatase 83 IU/L (40-130); Anion Gap 15.8 (5-19); Aspartate Amino Transferase 15 U/L (0-40); Blood Urea Nitrogen 19 mg/dL (6-20); Calcium 8.8 mg/dL (8.5-10.5); Carbon Dioxide 26 mmol/L (22-29); Chloride 100 mmol/L (98-107); Creatinine Clr Calc Pharmacy 79.7227; Globulin 2.3 g/dL (1.3-4.6); Glomerular Filtration Rate 63.6 mL/min (90-130); Glucose 118 mg/dL (65-115); Lipase 28 U/L (13-60); Osmolality Calculated 289 mOsm/kg (285-295); Potassium 3.8 mmol/L (3.5-5.1); Sodium 138 mmol/L (136-145); Total Bilirubin 0.2 mg/dL (0.15-1.2); Total Protein 6.4 g/dL (6.6-8.7)
[2021-06-17] MEDS: HYDROmorphone 1 mg/mL INJ 1 mL IVP (20:49)
[2021-06-17 20:58] LABS: Urine Appearance Hazy (CLEAR); Urine Color Amber (Yellow)
[2021-06-17 20:59] LABS: Add Urine Culture? Yes; Add Urine Microscopic? YES; Bacteria Urine TRACE /hpf; Bilirubin Urine Neg (Negative); Blood Urine 3+ (Negative); Glucose Urine UA Norm (Normal); Ketones Urine Negative (Negative); Leukocyte Esterase Urine Negative (Negative); Mucus Urine TRACE /hpf; Nitrate Urine Negative (Negative); Protein Urine 1+ (Negative); RBC Urine TOO NUMEROUS TO CNT /hpf (0-2); Squamous Epithelial Cell Urine 0-4 /hpf (0-5); Urobilinogen Urine Norm (Negative); WBC Urine 0-4 /hpf (0-5); pH Urine 5 (5-7)
[2021-06-17] MEDS: sodium chloride 0.9% 1,000 ML 999 ML IV (21:22)
[2021-06-17] MEDS: tamsulosin 0.4 mg Capsule PO (21:23)
[2021-06-17] MEDS: ketorolac 30 mg/mL INJ 15 MG IVP (21:26)
== END 2021-06-17 23:07 | disposition home or self-care (01) ==
PROVIDERS: Physician Assistant; Emergency Provider Emergency Medicine; PCP Family Medicine
DX: N20.1 Calculus of ureter (principal); I10 Essential (primary) hypertension
CPT/HCPCS: 74177; 80053; 81001; 83690; 85025; 87086; 96361; 96374; 96375; 96376; 99284; J1170; J1885; J2405; J7030; Q9967

== ENCOUNTER 2021-06-20 03:29 | Emergency (ER) | payer MEDICAID, SELFPAY ==
[2021-06-20 03:30] VITALS: BP 151/92; PULSE 107; RESP 26; TEMP 36.8; O2SAT 95; BMI 28.0
--- NOTE | 2021-06-20 03:33 | ED_ITS ---
HPI - Abdominal Pain General: Chief Complaint: Back Pain/Injury Stated Complaint: KIDNEY STONES Time Seen by Provider: 06/20/21 03:29 Source: patient Mode of arrival: ambulatory Limitations: no limitations History of Present Illness: HPI narrative: 50-year-old male who was seen here 3 days ago and was diagnosed with a left-sided kidney stone he states he is continue to have pain and has not passed stone he states that tonight the pain is severe he is in obvious distress from pain he states the pain is a 10 out of 10 denies any worsening improving factors has had nausea no vomiting denies any dysuria denies any fevers. Associated Symptoms: Denies chills, diarrhea, fever(s), nausea and vomiting Review of Systems Const: Denies: fever(s), chills, body aches or change in appetite Eyes: Denies: blurry vision or eye discomfort ENMT: Denies: throat pain or dental pain Card: Denies: chest pain Resp: Denies: dyspnea GI: Denies: abdominal pain, nausea, vomiting or diarrhea : Reports: flank pain Musc: Denies: neck pain or back pain Skin/Breast: Denies: rash Neuro: Denies: headache(s) Psych: Denies: depression Elroy/Lymph: Denies: easy bruising All/Imm: Denies: urticaria PFSH ED PFSH: Medical History Chronic low back pain Decreased glomerular filtration rate (GFR) Elevated blood pressure reading Hypertension Kidney stones, calcium oxalate dihydrate Lumbar disc disease with radiculopathy Obesity (BMI 30.0-34.9) Social History Smoking and tobacco status: current every day smoker Physical Exam Const: COMMON NORMALS: no acute distress, patient oriented x3 and healthy sonja earing HENMT: COMMON NORMALS: normocephalic and atraumatic HEAD & SCALP: normocephalic and atraumatic Eye: COMMON NORMALS: Equal, round and reactive pupils present and EOMs intact bilaterally PUPIL: Yes Equal, round and reactive pupils present Neck/C-Spine: COMMON NORMALS: full ROM and supple Chest: COMMONS NORMALS: normal inspection of the chest and normal palpation of entire chest wall Resp: COMMON NORMALS: normal respiratory effort, No retractions, No use of accessory muscles and clear to auscultation bilaterally AUSCULTATION: clear to auscultation bilaterally Cardio: COMMON NORMALS: regular rate, regular rhythm and No murmurs present (Cardio) RATE: regular rate RHYTHM: regular rhythm GI: COMMON NORMALS: Normal to inspection, nondistended, normoactive bowel sounds present, Soft to palpation, non-tender and no masses PALPATION: Yes Soft to palpation Extremity: COMMON NORMALS: normal to inspection and full ROM Neuro: COMMON NORMALS: patient oriented x3, moves all extremities and no focal motor deficits Psych: COMMON NORMALS: mental status grossly normal, Normal thought process present and cooperative THOUGHT PROCESS: Normal thought process present Skin: COMMON NORMALS: no rashes or lesions noted and no wounds GENERAL SKIN EXAM: no rashes or lesions noted Course Vital Signs: Vital signs: Vital Signs Temperature 98.3 F 06/20/21 03:30 Pulse Rate 93 06/20/21 04:14 Respiratory Rate 25 H 06/20/21 04:14 Blood Pressure 151/92 06/20/21 03:30 Pulse Oximetry 94 06/20/21 04:14 MDM - Abdominal Pain MDM Narrative: Medical decision making narrative: Patient presents with kidney stone that has progressed since last CT is now in the distal ureters pain is under control here he is likely should be able to pass this. He is to follow-up with urology and return if worsening. Lab Data: Labs: Lab Results 06/20/21 06/20/21 06/20/21 03:45 03:48 03:48 WBC 11.6 10^3/uL H 10 ^3/uL (4.0-10.0) RBC 4.71 10^6/uL 10^6 /uL (4.1-5.3) Hgb 14.0 g/dL g/dL (11.7-16.6) Hct 42.1 % % (42.0-52.0) MCV 89.4 fl fl (80-94) MCH 29.7 pg pg (28.0-34.0) MCHC 33.3 g/dL g/dL (30.0-36.0) RDW 13.3 % % (12.1-15.1) Plt Count 317 10^3/cmm 10^3 /cmm (130-400) MPV 9.2 fL fL (7.4-10.4) Neut % (Auto) 66.6 % % Lymph % (Auto) 24.3 % % [place] % (Auto) 8.2 % % Eos % (Auto) 0.3 % % Baso % (Auto) 0.3 % % Neut # (Auto) 7.74 10^3/uL H 10 ^3/uL (1.8-7.7) Lymph # (Auto) 2.8 10^3/uL 10^3/ uL (0.8-4.8) [place] # (Auto) 1.0 10^3/uL H 10^ 3/uL (0.2-0.9) Eos # (Auto) 0.0 10^3/uL 10^3/ uL (0.0-0.8) Baso # (Auto) 0.0 10^3/uL 10^3/ uL (0.0-0.1) Nucleated RBC % (a uto) 0 % % Nucleated RBCs # 0.0 /100WBC /100W BC Sodium 141 mmol/L mmol/L (136-145) Potassium 3.7 mmol/L mmol/L (3.5-5.1) Chloride 104 mmol/L mmol/L (98-107) Carbon Dioxide 22 mmol/L mmol/L (22-29) Anion Gap 18.7 (5-19) BUN 13 mg/dL mg/dL (6-20) Creatinine 1.1 mg/dL mg/dL (0.7-1.2) GFR Calculation 70.3 mL/min L mL/ min (90-130) Glucose 111 mg/dL mg/dL (65-115) Calculated Osmolal ity 293 mOsm/kg mOsm/ kg (285-295) Calcium 9.0 mg/dL mg/dL (8.5-10.5) Total Bilirubin 0.3 mg/dL mg/dL (0.15-1.2) AST 13 U/L U/L (0-40) ALT 11 U/L U/L (0-41) Alkaline Phosphata se 79 IU/L IU/L (40-130) Total Protein 6.5 g/dL L g/dL (6.6-8.7) Albumin 4.1 g/dL g/dL (3.5-5.2) Globulin 2.4 g/dL g/dL (1.3-4.6) Urine Color Yellow (Yellow) Urine Appearance Clear (CLEAR) Urine pH 5 (5-7) Ur Specific Gravit y 1.030 (1.005-1.030) Urine Protein Neg (Negative) Urine Glucose (UA) Norm (Normal) Urine Ketones Negative (Negative) Urine Blood 3+ H (Negative) Urine Nitrate Negative (Negative) Urine Bilirubin Neg (Negative) Urine Urobilinogen Neg mg/dL mg/dL (Negative) Ur Leukocyte Arabella ase Negative (Negative) Urine RBC 25-40 /hpf H /hpf (0-2) Urine WBC Rare /hpf /hpf (0-5) Ur Squamous Epith Cells Rare /hpf /hpf (0-5) Amorphous Sediment Not Reportable Urine Bacteria None /hpf /hpf (NONE) Urine Mucus 2+ /hpf /hpf Imaging Data ^: CT Abd/Pel: Attestation: I personally reviewed and interpreted this imaging study as follows: Radiologist's impression: [id number] [address] [address] Scan Report Signed Patient: Jonathan Etienne Unit #: [id number] : 1970 Age/Sex: 50 / M ADM Date: 06/20/21 Loc: ER Room/Bed: Attending Dr: Ordering Provider/Ordering MD: Alban Cuevas MD Date of Service: 06/20/21 Procedure(s): CT kidney stone 42111 Accession Number(s): [id number] Report Number: [id number] PROCEDURE INFORMATION: Exam: CT Abdomen And Pelvis Without Contrast Exam date and time: 06/20/2021 3:31 AM Age: 50 years old Clinical indication: Abdominal pain; Flank; Right; Prior surgery; Additional info: L flank pain TECHNIQUE: Imaging protocol: Computed tomography of the abdomen and pelvis without contrast. Total images: 325 Radiation optimization: All CT scans at this facility use at least one of these dose optimization techniques: automated exposure control; mA and/or kV adjustment per patient size (includes targeted exams where dose is matched to clinical indication); or iterative reconstruction. COMPARISON: CT abdomen pelvis w con* [id number] 06/17/2021 7:56 PM RADIATION DOSE METRICS: Total DLP (mGy-cm): 1491.1 FINDINGS: Liver: Benign liver granuloma. Gallbladder and bile ducts: Normal. No calcified stones. No ductal dilation. Pancreas: Normal. No ductal dilation. Spleen: Normal. No splenomegaly. Adrenal glands: Normal. No mass. Kidneys and ureters: Nonobstructive right sided kidney stone measures 2 mm. 5 mm distal left sided ureteral stone. Mild hydroureteronephrosis. Stomach and bowel: Unremarkable. No obstruction. No mucosal thickening. Appendix: No evidence of appendicitis. Intraperitoneal space: Unremarkable. No free air. No significant fluid collection. Vasculature: Incidental phleboliths noted. Lymph nodes: Unremarkable. No enlarged lymph nodes. Urinary bladder: Unremarkable as visualized. Reproductive: Prostatomegaly noted. The prostate gland contains benign-appearing calcifications that are likely parenchymal. Bones/joints: Spinal fusion hardware noted at L4-L5. Soft tissues: Unremarkable. CT/CT kidney stone [id number] IMPRESSION: 5 mm distal left sided ureteral stone. Mild hydroureteronephrosis. Dictated By: Malcolm Ospina MD Signed By: Malcolm Ospina MD Signed Date/Time: 06/20/21509 DD/ 033 Discharge Plan Discharge Patient Disposition: Home Clinical Impression: Kidney stone Condition: Stable Prescriptions: New hydrocodone-acetaminophen 5-325 mg tablet 1 tab PO Q6H PRN (Reason: pain) Qty: 14 RF: 0 No Action clindamycin HCl 300 mg capsule 300 mg PO TID 7 Days Qty: 21 RF: 0 lisinopril-hydrochlorothiazide 20-25 mg tablet 1 tab PO DAILY Qty: 90 RF: 2 Lidocaine Viscous 2 % solution 1 applic mucous membrane Q3H PRN (Reason: pain) Qty: 100 RF: 0 oxycodone 5 mg tablet 5 mg PO Q4H PRN (Reason: pain) Qty: 18 RF: 0 Flomax 0.4 mg capsule 0.4 mg PO .qhs Qty: 20 RF: 0 Zofran 4 mg tablet 4 mg PO Q8H PRN (Reason: nausea and vomiting) 5 Days Qty: 15 RF: 0 Discharge Orders: Discharge ED (Routine); Ordered 06/20/21 Ordered By: Alban Cuevas Referrals: Sarah Elizalde MD [Primary Care Provider] - Jaimes,Kenan, MD [Physician] - 1-3 days Discharge Diet: Advance as tolerated Discharge Activity: Resume usual activity Patient Instructions: Kidney Stones (ED), Opioid Safety Coding Level of Care Code ED Fish Farm Manager for Jaimeg Fwd Exam Comprehensive
[2021-06-20 03:46] VITALS: RESP 24; O2SAT 95
[2021-06-20] MEDS: ondansetron 2 mg/ML SDV 2 mL 4 MG IVP (03:46)
[2021-06-20] MEDS: HYDROmorphone 1 mg/mL INJ 1 mL IVP ×2 (03:46→04:14)
[2021-06-20] MEDS: sodium chloride 0.9% 1,000 ML 999 ML IV (03:51)
[2021-06-20 03:53] LABS: Basophils % 0.3 %; Eosinophils % 0.3 %; Hematocrit 42.1 % (42.0-52.0); Lymphocytes # 2.8 10^3/uL (0.8-4.8); Lymphocytes % 24.3 %; Mean Corpuscular HGB Conc 33.3 g/dL (30.0-36.0); Mean Corpuscular Hemoglobin 29.7 pg (28.0-34.0); Mean Corpuscular Volume 89.4 fl (80-94); Mean Platelet Volume 9.2 fL (7.4-10.4); Monocytes % 8.2 %; Neutrophils # 7.74 10^3/uL (1.8-7.7); Neutrophils % 66.6 %; Nucleated Red Blood Cells % 0 %; Platelet Count 317 10^3/cmm (130-400); Red Blood Count 4.71 10^6/uL (4.1-5.3); Red Cell Distribution Width 13.3 % (12.1-15.1); White Blood Count 11.6 10^3/uL (4.0-10.0)
[2021-06-20 04:14] VITALS: PULSE 93; RESP 25; O2SAT 94; O2SAT 95
[2021-06-20 04:17] LABS: Alanine Aminotransferase 11 U/L (0-41); Albumin Level 4.1 g/dL (3.5-5.2); Alkaline Phosphatase 79 IU/L (40-130); Anion Gap 18.7 (5-19); Aspartate Amino Transferase 13 U/L (0-40); Blood Urea Nitrogen 13 mg/dL (6-20); Carbon Dioxide 22 mmol/L (22-29); Chloride 104 mmol/L (98-107); Globulin 2.4 g/dL (1.3-4.6); Glomerular Filtration Rate 70.3 mL/min (90-130); Glucose 111 mg/dL (65-115); Osmolality Calculated 293 mOsm/kg (285-295); Potassium 3.7 mmol/L (3.5-5.1); Sodium 141 mmol/L (136-145); Total Bilirubin 0.3 mg/dL (0.15-1.2); Total Protein 6.5 g/dL (6.6-8.7)
[2021-06-20 04:27] LABS: Protein Urine Neg (Negative); Urine Appearance Clear (CLEAR); Urine Color Yellow (Yellow); pH Urine 5 (5-7)
[2021-06-20 04:28] LABS: Add Urine Microscopic? YES; Bilirubin Urine Neg (Negative); Blood Urine 3+ (Negative); Glucose Urine UA Norm (Normal); Ketones Urine Negative (Negative); Leukocyte Esterase Urine Negative (Negative); Nitrate Urine Negative (Negative); Urobilinogen Urine Neg (Negative)
[2021-06-20 04:30] LABS: Add Urine Culture? Yes; Mucus Urine 2+ /hpf; RBC Urine 25-40 /hpf (0-2); Squamous Epithelial Cell Urine RARE /hpf (0-5); WBC Urine RARE /hpf (0-5)
[2021-06-20] MEDS: ketorolac 30 mg/mL INJ 15 MG IVP (05:17)
[2021-06-20 05:29] VITALS: BP 121/73; PULSE 86; RESP 24; O2SAT 94
--- NOTE | 2021-06-20 08:22 | DCPLANNER ---
lands resource manager had message to schedule a follow up appointment for patient with Dr. Jaimes. lands resource manager sent message to Julien Corrales and Nicole at Dr. Patton office using task message. Patients information will be printed and reviewed. Clinic will call patient with appointment information.
--- NOTE | 2021-06-22 07:43 | DCPLANNER ---
Patient has a follow up appointment scheduled for Sunday, June 27, 2021 at 10:[address] Jaimes. Clinic will call patient with appointment information.
--- NOTE | 2021-06-30 11:21 | DCPLANNER ---
Patient had a follow up appointment scheduled for 06.27.[address] Jaimes - patient did attend appointment.
== END 2021-06-20 05:53 | disposition home or self-care (01) ==
PROVIDERS: Emergency Provider Emergency Medicine; PCP Family Medicine
DX: N20.0 Calculus of kidney (principal); I10 Essential (primary) hypertension; Z87.442 Personal history of urinary calculi; F17.210 Nicotine dependence, cigarettes, uncomplicated
CPT/HCPCS: 74176; 80053; 81001; 85025; 87086; 96361; 96374; 96375; 99284; J1170; J1885; J2405; J7030

== ENCOUNTER 2021-06-20 15:20 | Emergency (ER) | payer MEDICAID, SELFPAY ==
[2021-06-20 15:43] VITALS: BP 157/95; PULSE 102; RESP 18; TEMP 36.8; O2SAT 98; BMI 27.9
--- NOTE | 2021-06-20 16:27 | ED_ITS ---
Documented by User: JEREMI Christine 06/24/21 07:08 HPI - Male Genitourinary General: Chief complaint: Abdominal Pain Stated complaint: KIDNEY STONE RELATED PAIN/HERE THIS A.M. Time Seen by Provider: 06/20/21 16:21 Source: patient Mode of arrival: ambulatory Limitations: no limitations History of Present Illness: HPI Narrative: Patient is a 50-year-old male here for complaints of severe left flank pain. Patient was seen here 3 days ago and diagnosed with left ureterolithiasis. He was sent home with Flomax, Zofran, Oxycodone (18 tabs directions for one tab q4h). Patient states he ended up having to return to the ED early this morning secondary to pain. He was discharged home with 14 hydrocodone with directions to take one every 6 hours. Patient states when he went to fill this prescription the pharmacy stated they would not fill it because they said insurance wouldn't cover it (? I'm guessing secondary to overlap between the two narcotic prescriptions). States he was told by pharmacy that he could pay orantes for it tomorrow. Patient is here with a significant amount of discomfort. Patient had CBC, CMP, UA, and CT renal performed at 3 am this morning which showed a 5mm distal ureter stone with mild hydro. MD Complaint: other (L flank pain) Duration: constant Location: left flank Severity scale (1-10): >10 Quality: sharp and stabbing Associated symptoms: Reports nausea; Deny vomiting Review of Systems Const: Denies: fever(s), chills, body aches, fatigue or malaise Card: Denies: chest pain Resp: Denies: dyspnea GI: Reports: nausea; Denies: vomiting, diarrhea, change in bowel habits or change in stool character : Reports: flank pain and urinary hesitancy; Denies: urinary frequency, urinary dribbling or genital pain Musc: Reports: back pain (L flank); Denies: neck pain, extremity pain, extremity swelling, joint pain or joint swelling Skin/Breast: Denies: rash Neuro: Denies: headache(s) PFS ED PFSH: Medical History Chronic low back pain Decreased glomerular filtration rate (GFR) Elevated blood pressure reading Hypertension Kidney stones, calcium oxalate dihydrate Lumbar disc disease with radiculopathy Obesity (BMI 30.0-34.9) Social History Smoking and tobacco status: current every day smoker Physical Exam Const: COMMON NORMALS: average body habitus, patient oriented x3, no limitations, healthy appearing, alert and well nourished GENERAL APPEARANCE: cooperative and in distress (pt in significant discomfort ) GI: COMMON NORMALS: Normal to inspection, nondistended, normoactive bowel sounds present, Soft to palpation, No hepatosplenomegaly present and no masses PALPATION: Yes Soft to palpation, Yes Tenderness to palpation present (GI) (throughout L side of abdomen) and Yes No hepatosplenomegaly present : BLADDER/KIDNEY EXAM: Yes CVA tenderness Back/Pelvis: GENERAL BACK: Yes CVA tenderness CVA tenderness: left Neuro: COMMON NORMALS: patient oriented x3 SENSORIUM/ORIENTATION: Yes alert Course Vital Signs: Vital signs: Vital Signs Temperature 98.2 F 06/20/21 15:43 Pulse Rate 86 06/20/21 18:17 Respiratory Rate 18 06/20/21 18:17 Blood Pressure 143/88 06/20/21 18:17 Pulse Oximetry 98 06/20/21 18:17 MDM - Male MDM Narrative: Medical decision making narrative: Impression from CT renal scan performed at 3am this morning: CT/CT kidney stone 49711 IMPRESSION: 5 mm distal left sided ureteral stone. Mild hydroureteronephrosis. Patient does not want to be admitted if at all possible. I don't think repeating labs, urine, or imaging is necessary as he just had these completed 12 hours ago. Will give pain/nausea meds here and reassess. Care will be transferred to MARY Richmond at shift change. He is currently scheduled with Dr. Jaimes on 06/27. Discharge Plan Discharge Patient Disposition: Home Clinical Impression: Renal colic Condition: Stable Prescriptions: No Action lisinopril-hydrochlorothiazide 20-25 mg tablet 1 tab PO DAILY Qty: 90 RF: 2 oxycodone 5 mg tablet 5 mg PO Q4H PRN (Reason: pain) Qty: 18 RF: 0 Flomax 0.4 mg capsule 0.4 mg PO .qhs Qty: 20 RF: 0 hydrocodone-acetaminophen 5-325 mg tablet 1 tab PO Q6H PRN (Reason: pain) Qty: 14 RF: 0 Discharge Orders: Discharge ED (Routine); Ordered 06/20/21 Ordered By: Arnoldo Bergeron Referrals: Sarah Elizalde MD [Primary Care Provider] - Discharge Diet: Usual diet Discharge Activity: Increase activity as tolerated Patient Instructions: Opioid Safety Activity Restrictions/Additional Instructions: Continued with prescribed plan. Take medications only as directed. Follow-up with primary care for further instruction. Follow-up with urologist office tomorrow to see if appointment can be moved up. Sign Out Sign Out Data: Patient Sign Out occurred on 06/20/21 at 17:08. Patient's care was discussed, and care was transferred from to Arnoldo Bergeron. Post-Handoff Eval: 1745, patient's pain was much relieved. We will dispense 2 tablets of hydrocodone 7-1/2 mg?acetaminophen 325 mg. Patient will continue with present planned.Patient will follow up with primary care as needed. Patient will follow up with urologist office for further instruction. Coding Level of Care Code ED Yard General Car Supervisor for Chg Fwd Exam Expanded Problem Focused Documented by User: MARY Mcnally 06/20/21 17:44 HPI - Male Genitourinary General: Chief complaint: Abdominal Pain Stated complaint: KIDNEY STONE RELATED PAIN/HERE THIS A.M. Time Seen by Provider: 06/20/21 16:21 PFSH ED PFSH: Medical History Chronic low back pain Decreased glomerular filtration rate (GFR) Elevated blood pressure reading Hypertension Kidney stones, calcium oxalate dihydrate Lumbar disc disease with radiculopathy Obesity (BMI 30.0-34.9) Social History Smoking and tobacco status: current every day smoker Course Vital Signs: Vital signs: Vital Signs Temperature 98.2 F 06/20/21 15:43 Pulse Rate 86 06/20/21 18:17 Respiratory Rate 18 06/20/21 18:17 Blood Pressure 143/88 06/20/21 18:17 Pulse Oximetry 98 06/20/21 18:17 Discharge Plan Discharge Patient Disposition: Home Clinical Impression: Renal colic Condition: Stable Prescriptions: No Action lisinopril-hydrochlorothiazide 20-25 mg tablet 1 tab PO DAILY Qty: 90 RF: 2 oxycodone 5 mg tablet 5 mg PO Q4H PRN (Reason: pain) Qty: 18 RF: 0 Flomax 0.4 mg capsule 0.4 mg PO .qhs Qty: 20 RF: 0 hydrocodone-acetaminophen 5-325 mg tablet 1 tab PO Q6H PRN (Reason: pain) Qty: 14 RF: 0 Discharge Orders: Discharge ED (Routine); Ordered 06/20/21 Ordered By: Arnoldo Bergeron Referrals: Sarah Elizalde MD [Primary Care Provider] - Discharge Diet: Usual diet Discharge Activity: Increase activity as tolerated Patient Instructions: Opioid Safety Activity Restrictions/Additional Instructions: Continued with prescribed plan. Take medications only as directed. Follow-up with primary care for further instruction. Follow-up with urologist office tomorrow to see if appointment can be moved up. Sign Out Sign Out Data: Patient Sign Out occurred on 06/20/21 at 17:08. Patient's care was discussed, and care was transferred from to Arnoldo Bergeron. Post-Handoff Eval: 1745, patient's pain was much relieved. We will dispense 2 tablets of hydrocodone 7-1/2 mg?acetaminophen 325 mg. Patient will continue with present planned.Patient will follow up with primary care as needed. Patient will follow up with urologist office for further instruction. Coding Level of Care Code ED Yard General Car Supervisor for Chg Fwd Exam Expanded Problem Focused
[2021-06-20] MEDS: ondansetron 2 mg/ML SDV 2 mL 4 MG IM (16:46)
[2021-06-20 16:47] VITALS: RESP 18; O2SAT 98
[2021-06-20] MEDS: morphine 4 mg/mL SDV 1 mL IM (16:47)
[2021-06-20] MEDS: ketorolac 60 mg/2 mL INJ IM (16:48)
[2021-06-20] MEDS: HYDROcodone-acetaminophen 7.5-325 mg Tablet 2 TAB PO (18:16)
[2021-06-20 18:17] VITALS: BP 143/88; PULSE 86; RESP 18; O2SAT 98
== END 2021-06-20 18:18 | disposition home or self-care (01) ==
PROVIDERS: Emergency Provider Nurse Practitioner Family; PCP Family Medicine
DX: N23 Unspecified renal colic (principal); I10 Essential (primary) hypertension; Z87.442 Personal history of urinary calculi; F17.210 Nicotine dependence, cigarettes, uncomplicated
CPT/HCPCS: 96372; 99283; J1885; J2270; J2405

== ENCOUNTER 2021-06-27 07:43 | Outpatient (CLI) | payer MEDICAID, SELFPAY ==
--- NOTE | 2021-06-27 07:52 | XR_ITS ---
WS: [id number] Exam: XR KUB [id number] Date/Time of Exam: 06/27/2021 7:53 AM Reason For Exam: STONES No bowel obstruction or free air. No calcifications seen in the region of the kidneys. Interbody fusi on of the spine at the L4-5 disc level. No sign of organ enlargement. XR/XR KUB [id number] IMPRESSION: 1. No acute abdominal finding.
== END 2021-06-27 07:44 | disposition home or self-care (01) ==
LOC: RAD 07:44
PROVIDERS: PCP Family Medicine; Visit Provider Urology
DX: N20.2 Calculus of kidney with calculus of ureter (principal); Z20.822 Contact with and (suspected) exposure to COVID-19
CPT/HCPCS: 74018; 81003; 87635

== ENCOUNTER 2021-06-29 10:19 | Day surgery (SDC) | payer MEDICAID, SELFPAY ==
[2021-06-28 14:01] VITALS: BMI 27.1
[2021-06-29] VITALS (17 sets, daily range): BP systolic 106–128; BP diastolic 74–87; PULSE 77–93; RESP 14–22; TEMP 36.3–36.7; O2SAT 96–100
--- NOTE | 2021-06-29 | SCC_ITS ---
Procedure Done: 1. Cystoscopy, left ureteroscopy, laser lithotripsy, stent (4.5 x 28 cm double- pigtail without string) 2. Right retrograde ureteropyelogram 35.2 seconds of fluoroscopic guidance, for a cumulative dose of 8.99 mGy, was provided to Dr. Jaimes by the radiology department. C-arm images of the abdomen were saved for the patient's permanent record. [facility]
--- NOTE | 2021-06-29 10:20 | SC_ITS ---
WS: [id number] C-ARM RADIOGRAPHS ABDOMEN; 6 IMAGES HISTORY: Left ureteroscopy COMPARISON: None available. Status post LEFT ureteroscopy and retrograde imaging of the ureter. Contrast is injected into one of the ureters. By history this is the LEFT ureter. No filling defects are evident. No hydronephrosis. SC/C-arm FL for Urology IMPRESSION: Intraoperative imaging during ureteroscopy.
--- NOTE | 2021-06-29 10:52 | P.ANESASSM_ITS ---
Pre-Anesthetic Assessment Pre-Anesthetic Assessment: Height/Weight: Height 1.78 m Weight 85.729 kg Temp Pulse Resp BP Pulse Ox 97.9 F 93 18 114/80 97 06/29/21 10:49 06/29/21 10:49 06/29/21 10:49 06/29/21 10:49 06/29/21 10:49 Preop Diagnosis: Refractory left distal ureteral stone with renal colic Proposed Procedure: Operation Date: 06/29/21 12:00 Proposed Procedures p Laser Lithotripsy 31956/39422/44754/N20.9(Left) - Kenan Jaimes MD s Cystoscopy(Left) - MD carlos enrique Bernard Retrograde Pyelogram(Left) - MD carlos enrique Bernard Ureteroscopy(Left) - MD carlos enrique Bernard Ureteral Stent Placement(Left) - Kenan Jaimes MD Was Beta Tae taken within 24 hours: N/A Was Clonidine taken within 24 hours: N/A Last intake: 8 am water, last food 06/28 Social: Social History: Tobacco and No alcohol Exam: Pre-Anes Outpt Exam: alert, oriented x 3, clear to auscultation emmanuelle aterally and regular rate & rhythm Airway: Submandibular: WNL Cervical ROM: WNL MP: 2 Dentition: Chipped History/ROS: No significant complaints Pulmonary: Pulmonary: None reported CV/HEM: CV/HEM: None reported : : None reported Hepatic: Hepatic: None reported GI: GI: None reported Metabolic: Metabolic: None reported Musc/skel: Musc/skel: Lower Back Pain and OA/DJD Neuropsych: Neuropsych: None reported Anesthetic Plan: ASA status: 2 Anesthesia: General Risk of > 500 ml blood loss (7ml/kg in children): No PFSH Anesthesia PFSH: Medical History Chronic low back pain Decreased glomerular filtration rate (GFR) Elevated blood pressure reading Hypertension Lumbar disc disease with radiculopathy Obesity (BMI 30.0-34.9) Urolithiasis Multi stone former. 2 ureteral calculi in <1-year. Tiny punctate stone right kidney in addition Family History Father , AT AGE 75 Lung disease Mother , AT 79 Dementia Social History Alcohol intake: never Marital status: Current occupational status: other Details: WORK COMP History of recent travel: No Data Anesthesia Cardiac Studies: No Data to Display
[2021-06-29] MEDS: sodium chloride 0.9% 1,000 ML 30 ML IV (11:19)
[2021-06-29] MEDS: fentaNYL 50 mcg/mL INJ 2mL IVP ×3 (11:20→13:34)
--- NOTE | 2021-06-29 12:33 | W.PM.OPSUD ---
Surgery/Procedure H&P Update DATE OF PROCEDURE: June 29, 2021 DATE H&P PERFORMED: 06/27/21 H&P UPDATE INFORMATION: I have reviewed H&P completed within last 30 days, I have examined patient prior to procedure, Changes to prior documentation as noted here and H&P is in [facility] EMR on date indicated CHANGES TO PREVIOUS DOCUMENTATION: He was complaining of some right lower quadrant and right low back pain that was not present when he was in the clinic. I reviewed his CT scan again and he did have a small punctate stone in the right kidney. No evidence of anything in the ureter at time of CT scan. Reviewed that we could do a retrograde pyelogram on the right side and treat if we did find a small stone. Odds are that if nothing was done it would spontaneously pass. Still having typical left-sided pain even up to the point we talked before bringing back to the operating room. He states that he has strained his urine religiously and has not passed anything. Proceed with procedure as planned with possible right retrograde ureteropyelogram. PREOP DIAGNOSIS: Refractory left distal ureteral stone with renal colic PLANNED PROCEDURE: Operation Date: 06/29/21 12:00 Proposed Procedures p Laser Lithotripsy 03373/[id number]/12505/N20.9(Left) - Kenan Jaimes MD s Cystoscopy(Left) - Kenan Jaimes MD s Retrograde Pyelogram(Left) - Kenan Jaimes MD s Ureteroscopy(Left) - Kenan Jaimes MD s Ureteral Stent Placement(Left) - Kenan Jaimes MD
[2021-06-29] MEDS: levofloxacin-dextrose 5 % 500 MG/100 ML PREMIX 100 MG IV (12:35)
[2021-06-29] MEDS: iohexol 300 mg/mL 50 mL Btl (OR ONLY) XX (13:04)
--- NOTE | 2021-06-29 13:26 | P.OP_ITS ---
Operative Report Date of procedure: June 29, 2021 Pre-op Diagnosis: Refractory left distal ureteral stone with renal colic Post-op diagnosis: same Procedure Done: 1. Cystoscopy, left ureteroscopy, laser lithotripsy, stent (4.5 x 28 cm double- pigtail without string) 2. Right retrograde ureteropyelogram Implants: Right ureteral stent no string Specimens removed/disposition: Uncollectible tiny pieces of sand Pathology: none sent Surgeon: Fiona Anesthesia: General Estimated blood loss: <5 cc Urine output: Not measured Complications: None Findings: Stone identified in the expected position. Migrated proximally with passage of scope. Treated with 200 ?m thulium superpulse laser fiber into tiny fragments that I could not secure and graspers. Stent left indwelling Condition: stable Disposition: PACU Brief History: Mr. Etienne is a very pleasant 51-year-old white male recently diagnosed with a left distal ureteral stone with refractory symptoms. Stone failed to pass. He had 3 trips to the emergency department for severe symptoms. He elected to proceed with intervention based on the refractory nature of his symptoms. He was still having pain right before he was taken back to the operating room and he had been alevism and straining his urine without seeing a stone. He also complained of some new onset right-sided pain and there was a tiny stone seen on previous CT scan but could not be identified on the previous x-ray in the clinic. Procedure: After routine preoperative evaluation examination and obtaining of informed consent he was taken to the operating suite on 06/29/2021 where general anesthesia was administered without difficulty after appropriate timeout was performed, SCDs confirmed to be functioning, preoperative antibiotics administered, beta-agnes protocol confirmed. Prepped and draped in usual sterile fashion in dorsolithotomy position paying careful attention to avoiding pressure points. 21 Senegalese cystoscope with 30 degree lens was introduced into the urethra meatus and advanced into the bladder to videoscopy. The right ureteral orifice looked normal the left ureteral orifice showed typical edema consistent with an intramural stone location. It appeared that the stone was just inside the ureteral orifice. An attempt at passing a 3 Senegalese grasping forceps to secure the stone was unsuccessful. Flexible tip guidewire was then passed up the left ureter and wire secured to the drapes as a safety wire. No offset semirigid ureteroscope was then advanced up the left ureter. The stone migrated proximally up to about the level of the pelvic vessels. The ureteroscope was then passed over a second wire but could not adequately secure a safe position to try grasping or laser and for that reason the scope was removed. A 24 cm ureteral access sheath was then advanced over the working wire to the hub and a flexible ureteroscope was then passed over the guidewire to the level of the stone. A 200 ?m thulium superpulse laser fiber was then utilized to fragment the stone into sand. No significant pieces remained after treatment and the fragments were so small that they could not be adequately secured in graspers. The scope was removed and the ureter inspected as the scope was removed. The distal ureter had some typical inflammatory changes were the stone was located as well as with passage of the scope mild trauma and for that reason it was decided to leave a stent indwelling. The cystoscope was then backloaded over the safety wire and a 4.5 Senegalese by 28 cm double-pigtail stent was advanced over the guidewire through the cystoscope into appropriate position as confirmed via fluoroscopy and cystoscopy. The bladder was drained. There were some small ky pieces but they were still secure enough to send to the pathology. There is no active bleeding. The stent was confirmed to be working. He tolerated procedure well without complications and was awakened in the operating room and returned to the recovery room in stable condition. Plans: 1. Anticipate discharge from outpatient surgery 2. Follow-up in approximately 10 days for cystoscopy and stent removal, no x- ray needed.
[2021-06-29] MEDS: HYDROmorphone 1 mg/mL INJ 1 mL 0.5 MG IVP (14:02)
[2021-06-29] MEDS: HYDROcodone-acetaminophen 5-325 mg Tablet 1 TAB PO (15:00)
--- NOTE | 2021-06-29 15:09 | ANE.PACU2 ---
Inpatient post-anesthesia follow up: Airway intact: Yes Vital signs: Temperature 97.9 F Pulse Rate 77 Respiratory Rate 14 Blood Pressure 123/75 Pulse Oximetry 96 Oxygen Delivery Me thod Room Air Oxygen Flow Rate 8 Fraction of Inspir ed Oxygen Hydration adequate: Yes Nausea and vomiting: No Pain level: 3 Mental status: Baseline
== END 2021-06-29 15:30 | disposition home or self-care (01) ==
PROVIDERS: PCP Family Medicine; Visit Provider Urology
PROC: (CPT 52356; principal; 2021-06-29 12:00)
PROC: 0TJB8ZZ Inspection of Bladder, Via Natural or Artificial Opening Endoscopic (ICD-10-PCS; CPT 52000; 2021-06-29 12:00)
PROC: (CPT 74420; 2021-06-29 12:00)
PROC: 0TJ98ZZ Inspection of Ureter, Via Natural or Artificial Opening Endoscopic (ICD-10-PCS; CPT 52351; 2021-06-29 12:00)
PROC: (CPT 50605; 2021-06-29 12:00)
DX: N20.2 Calculus of kidney with calculus of ureter (principal); I10 Essential (primary) hypertension; E66.9 Obesity, unspecified; Z68.27 Body mass index [BMI] 27.0-27.9, adult
CPT/HCPCS: 52356; 76000; 96374; 96375; C2625; J1100; J1170; J1956; J2370; J2405; J3010; J3490; J7030

== ENCOUNTER → 2021-08-15 12:30 | Outpatient (BNVA) | payer MEDICAID, SELFPAY | PROVIDERS: PCP Family Medicine; Visit Provider Family Medicine | DX: M1A.0310 Idiopathic chronic gout, right wrist, without tophus (tophi) (principal); Z68.26 Body mass index [BMI] 26.0-26.9, adult; F17.210 Nicotine dependence, cigarettes, uncomplicated | CPT/HCPCS: 80053; 84550 ==

== ENCOUNTER 2021-08-23 08:17 | Outpatient (CLI) | payer OTHER, SELFPAY ==
--- NOTE | 2021-08-23 08:23 | CT_ITS ---
WS: [id number] CT LUMBAR SPINE, noncontrast. HISTORY: S/P LUMBAR FUSION TECHNIQUE: Contiguous 2.5 mm axial imaging are performed. Sagittal and coronal reformats are submitte d and reviewed. All CT scans at [facility] use at least one of these dose optimization techni ques: automated exposure control; mA and/or kV adjustment per patient size (includes targeted exams w here dose is matched to clinical indication); or iterative reconstruction. IV contrast: None DLP: 2884.6 mGy.cm COMPARISON: 08/14/2020 Since the prior examination the posterior lumbar fusion at L5-S1 is been removed. New posterior lumba r fusion at L4-5. Anterior lumbar fusion at L4-5 with interbody spacer is reidentified. Retraction of the anterior plate and screws from 4 mm to 10 mm since the prior study. There is increasing osteophy te and small bony fragments along the anterior L4-5 joint space. The disc space is narrowed and there is mild subsidence of the interbody spacer. The anterior fusion plate across the posterior surface o f the aorta. Moderate narrowing of the L5-S1 disc space. No fractures. L1-2: Normal. L2-3: Normal. L3-4: Annular disc bulging. LEFT foraminal disc protrusion is small and very slightly contacts the ex iting L3 nerve root. No interval change. Mild bilateral facet joint arthritis and ligamentum flavum a rthritis. L4-5: Diffuse osteophytic ridging. Posterior laminectomy defect. Facet joint arthritis encroaching in to the subarticular recesses, LEFT greater than RIGHT. Mild widening of the facet joints bilaterally, RIGHT greater than LEFT. No lucency around the hardware. Partially fused bone graft material posteri darius. Minimal LEFT foraminal narrowing. L5-S1: Diffuse osteophytic ridging. Large posterior laminectomy defect. Small osteophytes encroach up on the ventral thecal sac. Marked facet joint arthritis with partial fusion. Moderate bilateral macho inal stenosis. No progression since the prior examination. Partial fusion of the bone graft posterior ly. Atherosclerosis of the aorta. No residual stranding surrounding the LEFT iliac arteries or fluid romaine g the LEFT psoas muscle. CT/CT lumbar spine wo con* [id number] IMPRESSION: 1. Hardware revision since 08/14/2020. 2. Removal of the posterior fusion hardware at L5-S1. New posterior fusion anderson dware at L4-5 appears in good position and alignment. Large posterior laminecto my defects at the L4-5 level. 3. Resolution of the inflammatory change surrounding the LEFT iliac vessels an d fluid over the LEFT psoas muscle. 4. Anterior fusion plate and screws at the L4-5 level have retracted by 6 mm. Anterior fusion plate now abuts the posterior surface of the aorta. Increasing bone fragments may be causing the displacement. 5. Mild subsidence of the L4-5 interbody spacer. 6. Small LEFT foraminal disc protrusion at L3-4 unchanged. 7. Mild LEFT foraminal narrowing at L4-5 unchanged. 8. Moderate bilateral foraminal stenosis at L5-S1 unchanged.
== END 2021-08-23 08:18 | disposition home or self-care (01) ==
PROVIDERS: PCP Family Medicine; Visit Provider Physician Assistant Surgical
DX: Z98.1 Arthrodesis status (principal); M51.26 Other intervertebral disc displacement, lumbar region; M48.07 Spinal stenosis, lumbosacral region
CPT/HCPCS: 72131

== ENCOUNTER → 2022-10-03 09:19 | Outpatient (BNVA) | payer MEDICARE, MEDICAID, SELFPAY | PROVIDERS: PCP Family Medicine; Visit Provider Family Medicine | DX: I10 Essential (primary) hypertension (principal) | CPT/HCPCS: 80053; 85025 ==